=== PATIENT | male | born 2000 | race Asian ===

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

== ENCOUNTER 2021-06-15 18:51 | Emergency (ER) | payer OTHER ==
[~2021-06-15] VITALS: Ht 167.6 cm; Wt 86.2 kg
[2021-06-15 19:27] LABS: ABSOLUTE NEUTROPHILS 10.2 thou/uL (1.4-8.2); BASOPHILS 0.5 % (0.0-2.0); EOSINOPHILS 0.8 % (0.0-3.0); HEMATOCRIT 46.2 % (42.0-52.0); HEMOGLOBIN 16.3 gm/dL (14.0-18.0); LYMPHOCYTES 17.9 % (24.0-44.0); MCH 28.8 pg (26.0-34.0); MCHC 35.4 g/dL (28.0-37.0); MCV 81.3 fL (80.0-100.0); MONOCYTES 4.9 % (1.0-8.0); PLATELET COUNT 234 thou/uL (150-400); POLYS 75.9 % (36.0-66.0); RBC 5.68 mil/uL (4.50-6.00); RDW 13.4 % (10.5-14.5); WBC 13.5 thou/uL (4.0-11.0)
[2021-06-15 19:34] LABS: CALCIUM 9.4 mg/dL (8.5-10.1); CREATININE 0.9 mg/dL (0.7-1.3); POTASSIUM 4.2 mmol/L (3.5-5.1)
[2021-06-15] MEDS ORDERED: MOBIC7.5 MG PO (20:20)
[2021-06-15 20:39] VITALS: BP 111/65
--- NOTE | 2021-06-16 07:24 | EKG ---
[address] [address] ELECTROCARDIOGRAM REPORT Name: ANGELES VANEGAS [id number] Admission: 06/15/21 Attend Phys: Discharge: 06/15/21 Date of : 2 Report #: [id number] [facility] ED Test Date: 2021-06-15 Test Time: 18:56:01 Pat Name: ANGELES VIRAMONTES Department: Room: Gender: [employer]: KULWANT : 2000 Requested By: Martin Chappell Order Number: [id number] MD: Jarek Minor Measurements Intervals Burt Rate: 78 P: 64 MO: 247 QRS: 32 QRSD: 95 T: 6 QT: 349 QTc: 398 Interpretive Statements Sinus rhythm Prolonged MO interval No previous ECG available for comparison Electronically Signed On 06-16-2021 7:23:51 [employer] by Jarek Minor [email or web address] <ELECTRONICALLY SIGNED> By: Jarek Minor MD, [facility] 06/16/21 0723 [id number] [id number] Jarek Minor MD, FACC /EPI
== END 2021-06-15 20:39 | disposition home or self-care (01) ==
LOC: ER 18:51
PROVIDERS: Nurse Practitioner
DX: R07.89 Other chest pain (principal); F17.210 Nicotine dependence, cigarettes, uncomplicated; Z86.14 Personal history of Methicillin resistant Staphylococcus aureus infection